=== PATIENT | male | born 2000 | race African-American/Black ===

== ENCOUNTER 2022-03-12 08:26 | Emergency (ER) | payer OTHER ==
[2022-03-12 08:33] VITALS: BP 141/78; PULSE 91; RESP 18; TEMP 98.7; BMI 30.3
== END 2022-03-12 10:23 | disposition home or self-care (01) ==
LOC: JER 08:26
DX: J01.10 Acute frontal sinusitis, unspecified (principal); R09.81 Nasal congestion
CPT/HCPCS: 0241U-QW; 99283-25

== ENCOUNTER 2023-10-08 09:55 | Emergency (ER) | payer OTHER ==
[2023-10-08 10:12] VITALS: BP 128/79; PULSE 75; RESP 18; TEMP 97.8; BMI 30.9
[2023-10-08 12:42] LABS: BASO % 0.5 % (0-2.0); EOS % 1.8 % (0-4.5); HEMATOCRIT 50.8 % (35.4-49); HEMOGLOBIN 17.4 GM/dL (11.7-16.9); LYMPH % 26.7 % (8-40); MCH 31.3 pg (25.7-33.7); MCHC 34.2 g/dl (32.0-35.9); MEAN CELL VOLUME 91.5 fl (80-96); MEAN PLT VOLUME 8.4 fl (7.5-11.1); MONO % 7.5 % (3.8-10.2); NEUT % 63.5 % (42.8-82.8); PLATELET COUNT 224 10^3/uL (134-434); RBC 5.55 M/mm3 (4.00-5.60); RDW 13.2 % (11.9-15.9)
[2023-10-08 13:11] LABS: POTASSIUM 4.1 mmol/L (3.5-5.1)
[2023-10-08 13:12] LABS: BLOOD UREA NITROGEN 11.3 mg/dL (7-18); CALCIUM 9.4 mg/dL (8.5-10.1)
[2023-10-08 13:16] LABS: CREATININE 1.2 mg/dL (0.55-1.3)
== END 2023-10-08 16:30 | disposition home or self-care (01) ==
LOC: JERFT 09:55
DX: M79.605 Pain in left leg (principal)
CPT/HCPCS: 36415; 80048; 85025; 93971-TC; 99284-25

== ENCOUNTER 2024-07-18 13:42 | Emergency (ER) | payer OTHER ==
[2024-07-18 13:50] VITALS: BP 134/75; PULSE 96; RESP 20; TEMP 98.1; BMI 28.3
== END 2024-07-18 14:54 | disposition home or self-care (01) ==
LOC: JERFT 13:42
DX: H66.001 Acute suppurative otitis media without spontaneous rupture of ear drum, right ear (principal); H92.01 Otalgia, right ear
CPT/HCPCS: 99283-25